=== PATIENT | male | born 1930 | race Caucasian/White ===

== ENCOUNTER 2017-02-08 18:43 | Emergency (ER) | payer SELFPAY ==
[~2017-02-08] VITALS: Ht 172.7 cm; Wt 62.5 kg
[2017-02-08 19:38] VITALS: Ht 172.7 cm; Wt 62.5 kg
== END 2017-02-08 19:58 | disposition left against medical advice (07) ==
LOC: E/R 18:43
DX: Z53.21 Procedure and treatment not carried out due to patient leaving prior to being seen by health care provider (principal)